=== PATIENT | female | born 1960 | race Caucasian/White ===

== ENCOUNTER 2017-01-31 23:18 | Emergency (ER) | payer SELFPAY ==
[~2017-01-31] VITALS: Ht 154.9 cm; Wt 95.5 kg
[2017-01-31 23:55] LABS: BASOPHILS # (AUTO) 0.04 K/uL (0.00-0.20); BASOPHILS % (AUTO) 0.4 % (0.0-2.0); EOSINOPHILS % (AUTO) 2.51 % (1.0-6.0); HEMATOCRIT 42.2 % (36-46); LYMPHOCYTES % (AUTO) 24.5 % (22.0-44.0); MEAN CORPUSCULAR HEMOGLOBIN 29.7 pg (26.0-34.0); MEAN CORPUSCULAR HGB CONC 33.3 G/dL (31.0-37.0); MEAN CORPUSCULAR VOLUME 89 fL (80-100); MONOCYTES # (AUTO) 0.4 K/uL (0.1-1.0); MONOCYTES % (AUTO) 4.4 % (2.0-9.0); NEUTROPHILS # (AUTO) 5.5 K/uL (1.8-7.7); NEUTROPHILS % (AUTO) 68.2 % (40.0-70.0); PLATELET COUNT (AUTO) 117 K/uL (150-450); RED BLOOD CELL COUNT(AUTO) 4.72 MIL/uL (4.00-5.20); RED CELL DISTRIBUTION WIDTH 13.5 % (11.5-14.5); WHITE BLOOD COUNT (AUTO) 8.1 K/uL (4.5-11.0)
[2017-02-01] MEDS ORDERED: SODIUM CHLORIDE 0.9% 1,000 ML IV ONE
[2017-02-01] MEDS ORDERED: ONDANSETRON HCL 4 MG/2 ML VIAL IVP ONE
[2017-02-01] MEDS ORDERED: MORPHINE SULFATE 4 MG/ML SYRINGE IVP ONE
[2017-02-01 00:02] LABS: CALCIUM, TOTAL 8.6 mg/dL (8.8-10.5); CREATININE 1.23 mg/dL (0.60-1.30); POTASSIUM 3.6 mmol/L (3.5-5.1)
[2017-02-01 00:08] LABS: ALBUMIN 3.9 g/dL (3.4-5.0); BILIRUBIN,TOTAL 0.4 mg/dL (0.1-1.0); TOTAL PROTEIN, SERUM 7.9 g/dL (6.4-8.2)
[2017-02-01 03:31] LABS: APPEARANCE,URINE CLEAR (CLEAR); GLUCOSE, URINE (UA) NEGATIVE (NEGATIVE); KETONES,URINE NEGATIVE (NEGATIVE); LEUKOCYTE ESTERASE ,URINE NEGATIVE (NEGATIVE); OCCULT BLOOD,URINE NEGATIVE (NEGATIVE); PH,URINE 6.5 (5.0-8.0); PROTEIN,URINE NEGATIVE (NEGATIVE)
[2017-02-01 03:33] LABS: ADD UA MICROSCOPIC NO
[2017-02-01 03:59] VITALS: BP 108/66
== END 2017-02-01 04:22 | disposition home or self-care (01) ==
LOC: EMS 23:20
DX: K59.00 Constipation, unspecified (principal); K21.9 Gastro-esophageal reflux disease without esophagitis; I10 Essential (primary) hypertension; F17.210 Nicotine dependence, cigarettes, uncomplicated
CPT/HCPCS: 36415; 74010; 80053; 81003; 84703; 85025; 96361; 96374; 99285; J2270; J2405; J7030

== ENCOUNTER 2017-06-16 18:56 | Emergency (ER) | payer SELFPAY ==
[~2017-06-16] VITALS: Ht 157.5 cm; Wt 81.8 kg
[2017-06-16] MEDS ORDERED: GABA-529 PO (19:14)
[2017-06-16 21:00] VITALS: BP 140/85
[2017-06-16] MEDS ORDERED: IBUP-2354 PO (21:31)
[2017-06-16] MEDS ORDERED: ACETAMINOPHEN 500 MG TABLET PO ONE (22:00)
[2017-06-16] MEDS ORDERED: KETOROLAC TROMETHAMINE 60 MG/2 ML VIAL IM ONE (22:00)
[2017-06-16] MEDS ORDERED: CYCLOBENZAPRINE HCL 10 MG TABLET PO ONE (22:00)
== END 2017-06-16 21:57 | disposition home or self-care (01) ==
LOC: EMS 18:58
DX: M19.90 Unspecified osteoarthritis, unspecified site (principal); M25.552 Pain in left hip; K21.9 Gastro-esophageal reflux disease without esophagitis; I10 Essential (primary) hypertension; Z87.442 Personal history of urinary calculi
CPT/HCPCS: 96372; 99283; J1885